=== PATIENT | male | born 1945 | race Caucasian/White ===

== ENCOUNTER → 2018-05-05 12:28 | Outpatient (CLI) | payer MEDICARE, OTHER ==
[2010-12-20 18:21] VITALS: BMI 31.1
--- NOTE | 2018-05-07 14:58 | EC ---
PATIENT:JENNY DAUGHERTY DATE OF SERVICE: 05/05/18 SEX: M MEDICAL RECORD: [id number] DATE OF : 41 LOCATION:[facility] AGE OF PATIENT: 72 ADMISSION DATE: 05/05/18 REFERRING PHYSICIAN: INTERPRETING PHYSICIAN: KEKE MC MD ECHOCARDIOGRAM REPORT ECHO CHARGES 4 ECHO COMPLETE Date: 05/05/18 CLINICAL DIAGNOSIS: CULLEN/MR/TR/AI H/O HTN ECHOCARDIOGRAPHIC MEASUREMENTS (adult normal given) AC root (d.<3.7cm) 3.7 cm LV Septum d (<1.2 cm> 1.2 cm Valve Excursion 2.5 cm LV Septum (systole) 2.0 cm Left Atria (s.<4.0cm> 4.7 cm LVPW d(<1.2cm) 1.1 cm RV (d.<2.3cm) 2.7 cm LVPW (sytole) 1.3 cm LV diastole(<5.6CM) 7.2 cm MV E-F(>70mm/sec) cm LV systole 5.2 cm LVOT Diameter 2.0 cm MV exc.(>10mm) cm Est.ejection fraction (50-75%) % DOPPLER: LVIT cm/sec A 91.0 cm/sec E 80.0 cm/sec LA cm/sec RVSP 39.0 mmHg LVOT 120 cm/sec AOP1/2T m/s Asc. Ao 173 cm/sec RVOT 63.0 cm/sec RA cm/sec PA 117 cm/sec AV Gradient Peak 12.0 mmHg AV Mean 5.7 mmHg AV Area 2.2 cm MV Gradient Peak 4.6 mmHg MV Mean 1.4 mmHg MV Area cm COMMENTS: OP - HC It Support Specialist: Adrianna STAFFORDOE Service Mechanic: 1 Dr. Mc TAPE# PACS Pericardial Effusion N DATE OF SERVICE: 05/05/2018 DATE OF SERVICE: 05/05/2018 ECHOCARDIOGRAM FINDINGS: 1. Left ventricular chamber size is within normal limits. Left ventricular systolic function is normal. Overall ejection fraction estimated at 60%. 2. Left atrium is enlarged at 4.7 cm. Right atrium and right ventricular ECHOCARDIOGRAM REPORT [id number] JENNY DAUGHERTY chamber sizes are as well mildly dilated. 3. Valvular structures have normal structure and motion. 4. Doppler interrogation reveals [id number] mitral regurgitation, trace tricuspid regurgitation, no other valvular insufficiency or stenosis. Pulmonary systolic pressure is estimated at 39 mmHg. 5. No evidence of pericardial effusion or left ventricular thrombus. TRANSINT:[id number] Voice Confirmation ID: [id number] DOCUMENT ID: [id number] KEKE MC MD at 1458 CC: [id number] DICTATION DATE: 05/07/18907 DEPARTMENT OPERATIONS MANAGER: 05/07/18 0939 DEP CLI 05/05/[address] [id number]
== END | disposition home or self-care (01) ==
LOC: D.HCCARDIO 12:28
PROVIDERS: ATTEND Internal Medicine Interventional Cardiology
DX: I08.8 Other rheumatic multiple valve diseases (principal)

== ENCOUNTER → 2018-11-11 13:24 | Outpatient (CLI) | payer MEDICARE, OTHER ==
[2010-12-20 18:21] VITALS: BMI 31.1
== END | disposition home or self-care (01) ==
LOC: D.CT 13:24
PROVIDERS: ATTEND Family Medicine
DX: R94.39 Abnormal result of other cardiovascular function study (principal)

== ENCOUNTER → 2019-08-25 15:12 | Outpatient (CLI) | payer MEDICARE, OTHER ==
[2010-12-20 18:21] VITALS: BMI 31.1
[2019-08-25 17:49] LABS: BILIRUBIN NEGATIVE (NEGATIVE); GLUCOSE NEGATIVE (NEGATIVE); KETONE NEGATIVE (NEGATIVE); NITRITE POSITIVE (NEGATIVE); UROBILINOGEN NORMAL (NORMAL)
[2019-08-25 17:53] LABS: BACTERIA MODERATE /hpf (NEGATIVE); EPITHELIAL CELLS 0-5 /hpf (0-5); RED CELLS - URINE 25-50 /hpf (0-5); WHITE CELLS - URINE >50 /hpf (NEGATIVE)
== END | disposition home or self-care (01) ==
LOC: D.LABREF 15:12
PROVIDERS: ATTEND Specialist
DX: N39.0 Urinary tract infection, site not specified (principal)